=== PATIENT | male | born 1965 | race American Indian/Alaskan Native ===

== ENCOUNTER 2018-01-30 09:14 | Day surgery (SDC) | payer OTHER ==
[2018-01-27 17:46] VITALS: BMI 23.7
[2018-01-30] MEDS ORDERED: Adenosine 90 mg/30mL IV ONE (11:16)
[2018-01-30] MEDS ORDERED: Lidocaine 2% Inj (20ml) ONE (11:16)
[2018-01-30] MEDS ORDERED: Iohexol 350mgl/ml 50 ML ONE (11:17)
[2018-01-30] MEDS ORDERED: Heparin 2,000 ML IV ONE (11:17)
[2018-01-30] MEDS ORDERED: Iodixanol 320 MG/ML 200 ML BOTTLE IV ONE (11:17)
[2018-01-30] MEDS ORDERED: Iodixanol 320 MG/ML 100 ML BOTTLE IV ONE (11:17)
[2018-01-30] MEDS ORDERED: Nitroglycerin 50mg in D5W 50 MG/250 ML BOTTLE IV ONE (11:23)
[2018-01-30] MEDS ORDERED: Verapamil 2 ML ONE (11:23)
[2018-01-30] MEDS ORDERED: Midazolam 2 MG/2 ML VIAL ONE ×2 (11:29→11:46)
[2018-01-30] MEDS ORDERED: Sodium Chloride 0.9% 1,000 ML IV SCH (12:15)
[2018-01-30] MEDS ORDERED: Bacitracin 500 Units/gm Oint Foilpak UD TOP ONE (12:21)
[2018-01-30 13:30] VITALS: RESP 18; TEMP 97.6
--- NOTE | 2018-01-30 14:04 | CARDCATH ---
PROCEDURE DATE: 01/30/2018 INDICATIONS: Mr. Baker is a 32-year-old male who was transferred from [place] to [facility] for elevation [place]. He underwent angioplasty of the distal right IMMUNOCHEMIST. He was noted to have high-grade circulation and therefore was transferred to stage intervention of the circumflex disease. PROCEDURE PERFORMED: Left heart catheterization with selective left main coronary angiogram, normal is arising from the right coronary cusp. PTCA stenting of distal circ deployment of 225 x 30 Flakito drug-eluting stent, regeneration of 80% down to 0% NEGRITA 3 flow, 6-Iranian left radial artery access, wristband for hemostasis. PROCEDURE PERFORMED: Selective coronary angiogram percutaneous transluminal coronary angioplasty stenting of distal circumflex, deployment of 2.25 by 30 mm Resolute drug-eluting stent with regeneration up to 0%. RECOMMENDATIONS: The patient can be transferred back to [facility] . Oliver Lebron MD
[2018-01-30] MEDS ORDERED: Bacitracin 500 Units/gm Oint Foilpak UD ONE (16:10)
[2018-01-30 17:33] VITALS: BP 143/100; PULSE 87
== END 2018-01-30 18:32 | disposition short-term general hospital (02) ==
LOC: CATH 09:14 → 2RSO 12:29 → CATH 18:32
PROVIDERS: ATTEND Internal Medicine Interventional Cardiology
DX: I21.3 ST elevation (STEMI) myocardial infarction of unspecified site (principal); I13.0 Hypertensive heart and chronic kidney disease with heart failure and stage 1 through stage 4 chronic kidney disease, or unspecified chronic kidney disease; I50.20 Unspecified systolic (congestive) heart failure; N18.3 Chronic kidney disease, stage 3 (moderate); J44.9 Chronic obstructive pulmonary disease, unspecified
CPT/HCPCS: 93454; 99152; 99153; C1725; C1769 ×3; C1874; C1887; C1894; C9600; J0153; J1644 ×2; J2250; J3010; J7030; Q9966; Q9967